=== PATIENT | female | born 1995 | race Caucasian/White ===

== ENCOUNTER → 2019-07-20 10:29 | Outpatient (CLI) | payer OTHER, SELFPAY ==
[2019-07-20 14:42] LABS: Free T3 2.7 pg/mL (2.18-3.98); Progesterone Level 8.43 ng/mL (See Comment); T4 Free Direct 0.87 ng/dL (0.76-1.46); Thyroid Stim Hormone (TSH) 1.39 uIU/mL (0.358-3.74)
== END ==
PROVIDERS: Visit Provider Obstetrics & Gynecology
DX: N94.6 Dysmenorrhea, unspecified (principal)
CPT/HCPCS: 36415; 84144; 84439; 84443; 84481